=== PATIENT | female | born 1980 | race Caucasian/White ===

== ENCOUNTER 2024-11-20 10:55 | Day surgery (SDC) | payer OTHER ==
[~2024-11-20 10:55] MED LIST: HYDROmorphone 0.5 MG/0.5 ML SYRINGE IVP PRN; TRANEXAMIC 1,000 MG/100ML-NACL 1,000 MG in SALINE 1 100ML.BAG IV PRN; TRANEXAMIC 1,000 MG/100ML-NACL 1,000 MG in SALINE 1 100ML.BAG IVPB PRN
[2024-11-20] MEDS: IV FLUID CONTINUATION 1,000 ML IV ONE (11:26)
[2024-11-20] MEDS: ACETAMINOPHEN TAB 500 MG TAB PO PRN (12:08)
[2024-11-20] MEDS: DOCUSATE 100 MG CAP PO PRN (12:08)
[2024-11-20] MEDS: oxyCODONE ER 10 MG TAB.ER.12H PO PRN (12:08)
[2024-11-20] MEDS: KETOROLAC 15 MG/ML 1 ML VIAL IVP PRN (12:09)
[2024-11-20] MEDS: ONDANSETRON 4 MG/2 ML VIAL IVP PRN (12:10)
[2024-11-20] MEDS: FAMOTIDINE 20 MG/2 ML VIAL IVP PRN (12:10)
[2024-11-20] MEDS: DEXAMETHASONE SOD PHOSPHATE 10 MG/ML 1 ML VIAL IV PRN (12:10)
[2024-11-20] MEDS: LACTATED RINGERS 1,000 ML IV SCH (12:11)
[2024-11-20 12:14] LABS: Glucose,Whole Blood 94 mg/dL (70-110)
[2024-11-20] MEDS ORDERED: fentaNYL (PF) 50 MCG/ML 2 ML AMP IVP PRN (12:38)
[2024-11-20] MEDS: fentaNYL (PF) 50 MCG/ML 2 ML AMP IVP PRN (12:39)
[2024-11-20] MEDS: MIDAZOLAM 2 MG/2 ML VIAL IV PRN (12:39)
[2024-11-20] MEDS: ROPIVACAINE/EPI/CLONIDINE/KET 50 ML SYRINGE MISCELLANE PRN (12:47)
[2024-11-20] MEDS ORDERED: ROPIVACAINE 5 MG/ML 30 ML VIAL ONE (12:54)
[2024-11-20] MEDS ORDERED: LIDOCAINE 1% INJ 10MG/ML (20 ML MDV) ONE (12:54)
[2024-11-20] MEDS ORDERED: PHENYLEPHRINE 10 MG/ML VIAL ONE (12:54)
[2024-11-20] MEDS ORDERED: ePHEDrine 50 MG/ML 1 ML VIAL ONE (12:54)
[2024-11-20] MEDS ORDERED: DEXAMETHASONE SOD PHOSPHATE 4 MG/ML 1 ML VIAL ONE (12:54)
[2024-11-20] MEDS ORDERED: PROPOFOL 10 MG/ML 20 ML VIAL IV ONE (12:54)
[2024-11-20] MEDS ORDERED: NEOSTIGMINE 1 MG/ML 10 ML VIAL ONE (12:54)
[2024-11-20] MEDS ORDERED: GLYCOPYRROLATE 0.2 MG/ML 2 ML VIAL ONE (12:54)
[2024-11-20] MEDS ORDERED: HYDROmorphone (PF) 1 MG/ML ONE (12:54)
[2024-11-20] MEDS ORDERED: TRANEXAMIC 1,000 MG/100ML-NACL PREMIX BAG ONE (12:54)
[2024-11-20] MEDS ORDERED: ROCURONIUM 10 MG/ML (5 ML VIAL) IV ONE (12:54)
[2024-11-20] MEDS: LACTATED RINGERS 1,000 ML IV ONE (14:40)
--- NOTE | 2024-11-20 14:49 | P.ANPRN ---
Procedure Note - Anesthesia - Nerve Block Performed Right Moses Single Time Out Performed: Yes ([id number]) Date of Procedure: 11/20/24 Procedure Start Time: 12:40 Procedure Stop Time: 12:44 Location of Patient: PreOp Indication: Acute Post-Operative Pain, Requested by Surgeon Specifically requested for management of pain by DrIlene: Santiago Hendrickson Sedation Type: Sedate with meaningful contact maintained Preparation: Sterile Prep Position: Supine Catheter: None Needle Types: Pajunk Needle Gauge: 21 Ultrasound used to visualize needle placement: Yes Ultrasound used to observe medication spread: Yes Injectate: 0.5% Ropivacaine (see comment for volume) (30cc+decadron 4mg) Blood Aspirated: No Pain Paresthesia on Injection Noted: No Resistance on Injection: Normal Image Stored and Saved: Yes Events: Uneventful and Well Tolerated
--- NOTE | 2024-11-20 14:58 | FL ---
EXAMINATION TYPE: FL guidance operating room, XR Hip Limited RT DATE OF EXAM: 11/20/2024 FLUOROSCOPY TOTAL ANT HIP RIGHT IN OR. FL TIME 0.36 SECS FLUORO DAP 1.6466 4 images are provided. Final image shows gross anatomic alignment with well seated components of the right total hip arthrop lasty. [facility], , 11/20/2024 2:56 PM
[2024-11-20] MEDS ORDERED: NALOXONE 0.4 MG/ML 1 ML VIAL IV PRN (15:00)
[2024-11-20] MEDS ORDERED: MAGNESIUM HYDROXIDE 2,400 MG/30 ML CUP PO PRN (15:00)
[2024-11-20] MEDS ORDERED: diazePAM 5 MG TAB PO PRN ×2 (15:00)
[2024-11-20] MEDS ORDERED: TEMAZEPAM 15 MG CAP PO PRN (15:00)
[2024-11-20] MEDS ORDERED: HYDROmorphone 1 MG/ML 1 ML SYRINGE IVP PRN (15:00)
[2024-11-20] MEDS ORDERED: hydrOXYzine pamoate 25 MG CAP PO PRN (15:00)
[2024-11-20] MEDS ORDERED: ONDANSETRON 4 MG/2 ML VIAL IVP PRN (15:00)
[2024-11-20] MEDS ORDERED: HYDROmorphone 0.5 MG/0.5 ML SYRINGE IVP PRN ×2 (15:00)
--- NOTE | 2024-11-20 15:00 | P.OP ---
Date of Procedure: 11/20/24 Preoperative Diagnosis: Severe right hip osteoarthritis with large cam lesion Postoperative Diagnosis: Same Procedure(s) Performed: Right direct anterior total hip arthroplasty Implants: 1. [place] Tr[place] II Acetabular Cup, Size #48 2. [place] Insignia Size #3 Femoral Stem, Standard Offset 3. Dual Mobility OD 38 mm, ID 28 mm, -4 mm neck Anesthesia: GETA Surgeon: Santiago Hendrickson Lard Tub Washer #1: David Nguyen Estimated Blood Loss (ml): 500 IV fluids (ml): 800 Pathology: none sent Condition: stable Disposition: PACU Indications for Procedure: The patient presented to my office with severe and incapacitating right hip and groin pain. Her x-rays showed severe hip arthritis with complete loss of joint space at the superior aspect of the femoral head and a large cam lesion. She had pain with any attempts of passive range of motion of the right hip. We discussed continued nonsurgical treatment which she initially elected for. She eventually developed worsening pain and requested proceeding with surgery. Given her x-ray findings and exam we both felt confident that the majority of her pain was intra-articular hip pathology. We also discussed the role that her age plays. I think she would be best treated with a total hip replacement understanding the limitations and possibility of needing revision later in life. Both the patient and her understand and agree to proceed with a direct anterior total hip arthroplasty. I had a long discussion with the patient in the office on the potential risks and complications of an elective total hip replacement through a direct anterior approach. Risks discussed include, but are certainly not limited to, risks from anesthesia, superficial infection requiring local wound care or antibiotics, deep donnell-prosthetic joint infection and the treatment required to eradicate infection, intraoperative fracture, postoperative periprosthetic fracture, damage to local blood vessels or nerves particularly the lateral femoral cutaneous nerve, delayed wound healing requiring local wound care or possibly surgical debridement, hip dislocation, leg length discrepancy, soft tissue irritation around the total hip implant such as iliopsoas tendinitis or trochanteric bursitis, wear and osteolysis from the implants, squeaking or audible noises, groin pain, thigh pain, heterotopic ossification, stiffness, aseptic loosening of the implants, dissatisfaction with surgical outcome, need for revision surgery, DVT, PE, swelling of the operative extremity, acute coronary event, stroke, failure to thrive, and possibly loss of life or limb. The patient understands that while these are the most common complications after an elective hip replacement there are certainly other less common complications possible. They were given ample time to ask questions regarding the potential complications of a hip replacement. Following our discussion the patient provided their verbal and written consent to go forward with an elective total hip replacement. Operative Findings: Severe arthritis with complete loss of joint space along the superior femoral head and neck. Large cam lesion over the lateral head and neck. Description of Procedure: The patient was identified in the preoperative holding area and the correct hip was marked with my initials. I reviewed the procedure and consent with the patient. All of their questions were answered. The patient was then brought back into the operating room by anesthesia. While on the [facility] anesthesia was administered by the anesthesia team. Preoperative antibiotics and tranexamic acid were also given. After the patient was under anesthesia I examined their ankles to determine their preoperative leg length discrepancy. The skin over the anterior aspect of the hip was shaved to remove hair over the site of planned incision. Both feet and ankles were padded with webril and boots for the [place] were applied. The patient was then carefully transferred onto the [place] table. A perineal post was immediately placed. The arms were placed on arm holders and were well-padded. Both boots were secured to the spars on the [place] table. The patient was positioned so that the pelvis was centered over the post. Nonsterile drapes were applied. A timeout was performed identifying the correct patient, operative extremity, and procedure. At this point fluoroscopy was brought in to take preoperative images of the pelvis and operative hip. Using the standing AP pelvis from the office as a template, a comparable image was obtained with fluoroscopy. A metallic bar was used to create a bi-ischial line for use as a reference to leg length adjustments during the procedure. Global offset was also measured on both the operative and nonoperative leg. Fluoroscopy was then brought out and a pre-scrub using a chlorhexidine scrub brush was performed. The operative limb was then prepped and draped in the standard sterile fashion. An anterior longitudinal incision was made lateral and distal to the ASIS. The skin and subcutaneous tissues were incised sharply. The underlying tensor fascia was identified and incised in its midportion. The fascia was dissected free from the underlying muscle and the muscle belly was retracted. A blunt tipped cobra retractor was placed over the superior neck under the muscle fibers of the gluteus minimus. The deep enveloping fascia of the tensor was incised. The anterior leash of vessels were then identified and cauterized. The fascia between the rectus and the capsule was then incised and the pre-capsular fat was excised. A second Cobra was placed inferior to the neck. The interval between the rectus and iliocapsularis and the hip capsule was developed and a retractor was placed carefully over the anterior rim of the acetabulum. A T-shaped anterior capsulotomy was performed. The superior capsular leaflet was left in place in the inferior capsular flap was excised. The Cobra retractors were placed intracapsularly. We then made a femoral neck osteotomy according to preoperative and intraoperative templating and confirmed the level of the osteotomy using fluoroscopic imaging. The femoral head was removed, passed off to the back table, and sized. The superior capsular flap was excised. Retractors were placed circumferentially exposing the acetabulum. We then circumferentially debrided the acetabulum free of labrum and osteophytes. The pulvinar was removed to fully visualize the cotyloid fossa. We then sequentially reamed to achieve peripheral fit and excellent bleeding subchondral bone. The socket was thoroughly irrigated. The acetabular component was impacted into the appropriate position using fluoroscopy to guide version, inclination, and depth of insertion taking care to have a comparable image of the AP pelvis to the standing image taken in the office. An excellent press-fit was achieved and final position was confirmed using fluoroscopy. The press fit was augmented with a bony cancellus dome screw. The liner was then impacted into the socket. Attention was then turned to the femur. The remnant dorsal lateral capsule was excised. The short external rotators were visible and protected. A bone hook was used to confirm appropriate translation of the trochanter away from the acetabulum. The leg was then extended and adducted and the bone hook was used to elevate the femur for broaching. A box osteotome and blunt tipped canal sound was then utilized to gain access to the femoral canal. We then sequentially broached the femur in appropriate anteversion until excellent torsional stability was achieved. The neck cut was brought flush to the trial broach with a calcar planar. A trial neck and head were then placed onto the broach and the hip was atraumatically reduced under direct visualization. External rotation to 90 was performed to assess stability. Fluoroscopy was brought in. An AP and lateral fluoroscopic image of the proximal femur was obtained to assess position and fill of the trial broach. An AP of the pelvis was then obtained and matched to the preoperative image taken. A bi-ischial bar was then placed and measurements were taken to assess changes in length and offset. The hip was then carefully dislocated, the proximal femur was exposed, and the trial implants were removed. The wound and proximal femur was thoroughly irrigated using sterile saline and pulsatile lavage. The final femoral implant was dispensed and gently tapped into place generating an excellent press-fit. The trunnion was cleansed and the final head was tapped into place to engage the Sherman taper. The acetabulum was irrigated and visualized to be free of debris. The hip was carefully reduced. Stability was checked clinically with external rotation to 90 and there was no evidence of instability. Final fluoroscopic images were taken. The wound was then thoroughly irrigated and soaked with a dilute Betadine rinse for 3 minutes. 3 L of sterile saline was irrigated through the wound using pulsatile lavage. Local anesthetic cocktail was injected into the soft tissues around the surgical field. The wound was then closed in layers. A sterile dressing was placed over the surgical incision. The drapes were taken down and the patient was carefully transferred off of the [place] table. Following removal of the boots the leg lengths felt acceptable. The patient was then taken to recovery room having tolerated the procedure well. David Nguyen PA-C was required as a skilled litigation legal assistant due to the complexity of surgery for patient positioning, draping, exposure, retraction, closure of wound and application of dressing. PLAN: The patient can weight-bear as tolerated on the operative extremity. 2 doses of postoperative antibiotics. DVT prophylaxis with aspirin 81 mg twice a day based on preoperative risk stratification. Physical therapy for gait training.
[2024-11-20] MEDS: SENNOSIDES-DOCUSATE SODIUM 1 EACH TAB PO SCH (20:09)
[2024-11-20] MEDS: SODIUM CHLORIDE 0.9% 1,000 ML IV SCH (20:09)
[2024-11-20] MEDS: ASPIRIN 81 MG PO SCH (20:09)
[2024-11-20 20:22] LABS: Glucose,Whole Blood 192 mg/dL (70-110)
[2024-11-21] MEDS: HYDROcodone/APAP 5-325MG 1 EACH TAB PO PRN (00:05)
[2024-11-21 02:01] VITALS: RESP 17
--- NOTE | 2024-11-21 05:15 | P.CONS ---
History of Present Illness - Reason for Consult Consult date: 11/20/24 - History of Present Illness 44-year-old female no significant past medical history Patient underwent right hip replacement due to severe degenerative joint disease tolerated procedure well no severe immediate postoperative complications tolerated p.o. intake took few steps with assistance passed urine. Denies any nausea vomiting chest pain trouble breathing. review of systems Pertinent positives as noted in HPI. All other systems were reviewed and are negative on exam Constitutional: No acute distress, conversant, pleasant Eyes: Anicteric sclerae, moist conjunctiva, Pupils equal round reactive to light ENMT: NC/AT Oropharynx clear, no erythema, or exudates Neck: Supple, no masses, or JVD No carotid bruits No thyromegaly Lungs: Clear to auscultation Clear to percussion Normal respiratory effort, no accessory muscle use Cardiovascular: Heart regular in rate and rhythm, No murmurs, gallops, or rubs No peripheral edema Abdominal: Soft Nontender, no guarding, rebound or rigidity Abdomen moving with respiration Normoactive bowel sounds Extremities: No digital cyanosis No clubbing Pedal pulses intact and symmetrical Radial pulses intact and symmetrical No calf tenderness Psychiatric: Alert and oriented to person, place and time Appropriate affect fair judgement Neuro Muscles Strength 5/5 in all 4 extremities except for limited exam over the right lower extremity secondary to postop status Sensation to light touch grossly present throughout Cranial nerves II-XII grossly intact Past Medical History Additional Past Medical History / Comment(s): orly saweyr-uses inhaler as needed. rt hip pain. -leg feels like it will give out. History of Any Multi-Drug Resistant Organisms: None Reported Past Surgical History: Hernia Repair, Hysterectomy Additional Past Surgical History / Comment(s): polyp removal- Past Anesthesia/Blood Transfusion Reactions: No Reported Reaction Past Psychological History: No Psychological Hx Reported Smoking Status: Never smoker Past Alcohol Use History: Occasional Past Drug Use History: None Reported - Past Family History Mother Family Medical History: Cancer, Hypertension Additional Family Medical History / Comment(s): ovarian cancer Father Family Medical History: Cancer, Hyperlipidemia, Myocardial Infarction ([place]) Additional Family Medical History / Comment(s): neck and jaw cancer Medications and Allergies Home Medications Medication Instructions Recorded Confirmed Type Albuterol Sulfate [Ventolin HFA] 2 puff INHALATION Q4HR PRN 11/14/24 11/20/24 History Meloxicam 7.5 mg PO DIRECTED PRN 11/14/24 11/20/24 History Tirzepatide [Zepbound] 7.5 mg SQ MO 11/14/24 11/20/24 History Unk Multi Vitamin 1 tab PO DAILY 11/14/24 11/20/24 History Allergies Allergy/AdvReac Type Severity Reaction Status Date / Time No Known Allergies Allergy Verified 11/20/24 11:30 Physical Exam Vitals: Vital Signs Temp Pulse Pulse Resp BP BP Pulse Ox 11/21/24 02:00 97.6 F 99 17 93/67 100 11/21/24 01:00 14 11/21/24 00:03 90/61 11/20/24 19:40 97.6 F 102 H 17 92/63 100 11/20/24 19:04 94/52 11/20/24 17:21 97.5 F L 17 94/61 97 11/20/24 16:24 74 13 98/61 99 11/20/24 16:09 72 13 97/57 99 11/20/24 15:54 71 13 103/62 99 11/20/24 15:38 77 12 103/62 99 11/20/24 15:23 81 12 105/60 100 11/20/24 15:08 97 F L 91 16 104/58 98 11/20/24 12:44 87 16 113/73 100 11/20/24 12:00 98.0 F 87 16 132/88 100 Intake and Output 11/20/24 11/20/24 11/21/24 14:59 22:59 06:59 Intake Total 1450 50 Output Total 500 0 Balance 950 50 Intake: IV 1450 50 Output: Urine 0 Estimated Blood Loss 500 Other: Voiding Method Bedside Commode # Voids 1 Weight 82.8 kg 82.8 kg Results Labs: Abnormal Lab Results - Last 24 Hours (Table) 11/20/24 Range/Units 20:21 POC Glucose (mg/dL) 192 H (70-110) mg/dL Assessment and Plan Assessment: Right hip replacement postoperative day 0 Tolerated procedure well DVT prophylaxis and pain control per primary surgical team Check CBC BMP in the morning Stable overall from medical standpoint Thank you for this consultation
[2024-11-21] MEDS: HYDROcodone/APAP 10-325MG 1 EACH TAB PO PRN (05:49)
--- NOTE | 2024-11-21 07:39 | P.DS ---
Providers Date of admission: 11/20/2024 Attending physician: Santiago Hendrickson Consults: 11/20/24 15:00 Consult Physician Routine Consulting Provider: Emir Catherine Consult Reason/Comments: post op medical management Do you want consulting provider notified?: Yes Primary care physician: Mick Bautista [facility] Course: Pleasant 44-year-old female who was admitted yesterday and underwent uncom plicated total hip replacement. She was admitted under my care following surgery. Internal medicine has been consulted. Physical therapy has been consulted. I saw the patient on postoperative day #1 and she was doing well. Her dressing was intact with only a small area of spotting at the superior aspect. Her thigh is soft and compressible. Femoral nerve function is intact. She is able to actively plantarflex and dorsiflex her ankle and her toes. She was tentatively cleared for discharge home pending evaluation by physical therapy later this morning. Patient Condition at Discharge: Good Plan - Discharge Summary Discharge Rx Participant: No New Discharge Prescriptions: No Action Unk Multi Vitamin 1 tab PO DAILY Tirzepatide [Zepbound] 7.5 mg SQ MO Meloxicam 7.5 mg PO DIRECTED PRN PRN Reason: Pain Albuterol Sulfate [Ventolin HFA] 2 puff INHALATION Q4HR PRN PRN Reason: Shortness Of Breath Discharge Medication List Albuterol Sulfate [Ventolin HFA] 2 puff INHALATION Q4HR PRN 11/14/24 [History] Meloxicam 7.5 mg PO DIRECTED PRN 11/14/24 [History] Tirzepatide [Zepbound] 7.5 mg SQ MO 11/14/24 [History] Unk Multi Vitamin 1 tab PO DAILY 11/14/24 [History] Follow up Appointment(s)/Referral(s): Santiago Hendrickson MD [Medical Doctor] - 2 Weeks Activity/Diet/Wound Care/Special Instructions: 1. Weight-bear as tolerated on your operative extremity unless instructed otherwise. Use a walker or other assistive device to ambulate. 2. Leave surgical dressing in place. If your dressing becomes saturated with blood, there is drainage, or the dressing becomes loose please contact the off ice. 3. It is okay to shower with your surgical dressing, but do not submerge in water (no hot tubs, bath's, swimming etc.) 4. Make sure to take her blood clot prevention medication as prescribed ( aspirin, Eliquis, Xarelto, and Plavix are commonly prescribed medications for blood clot prevention) 5. While taking [place] or Percocet for pain make sure you're taking a stool softener (Colace) and drink lots of water. 6. Keep all follow-up appointments as scheduled. You will usually be seen in 1-2 weeks following surgery. 7. Please contact the office with any questions or concerns [phone] Discharge Disposition: HOME WITH HOME HEALTH SERVICES
[2024-11-21 07:58] LABS: Basophils # (A) 0.03 X 10*3/uL (0.00-0.10); Basophils % (A) 0.2 %; Eosinophils # (A) 0 X 10*3/uL (0.04-0.35); Eosinophils % (A) 0 %; HCT 28.1 % (37.2-46.3); HGB 9.3 g/dL (12.0-15.0); Lymphocytes # (A) 1.28 X 10*3/uL (0.90-5.00); Lymphocytes % (A) 9.2 %; MCH 30.7 pg (27.0-32.0); MCHC 33.1 g/dL (32.0-37.0); MCV 92.7 FL (80.0-97.0); Mean Platelet Volume 10.9 FL (9.5-12.2); Monocytes # (A) 0.88 X 10*3/uL (0.20-1.00); Monocytes % (A) 6.3 %; NRBC Per 100 WBC 0 X 10*3/uL (0.00-0.01); Neutrophils % (A) 83.7 %; Platelet Count 178 X 10*3/uL (140-440); RBC 3.03 X 10*6/uL (4.10-5.20); RDW 13.2 % (11.5-14.5); WBC 13.97 X 10*3/uL (4.50-10.00)
[2024-11-21 09:00] LABS: Blood Urea Nitrogen 8.7 mg/dL (9.0-27.0); Calcium 7.8 mg/dL (8.7-10.3); Carbon Dioxide 21.7 mmol/L (21.6-31.8); Chloride 108 mmol/L (96-109); Glucose 112 mg/dL (70-110); Potassium 5.2 mmol/L (3.5-5.5); Sodium 138 mmol/L (135-145)
--- NOTE | 2024-11-21 09:34 | P.PN ---
Subjective Progress Note Date: 11/21/24 Subjective: Patient seen and examined at bedside. No acute events overnight. Pertinent positives and negatives as discussed above, a complete review of systems was performed and all other systems are negative. Vitals Signs Reviewed. General: Nontoxic, no distress, appears at stated age Derm: Warm, dry, dressing clean, dry, intact Head: Atraumatic, normocephalic, symmetric Eyes: EOMI, no lid lag, anicteric sclera Mouth: No lip lesion, mucus membranes moist Cardiovascular: S1S2 reg, no murmur Lungs: CTA bilateral, no rhonchi, no rales, no accessory muscle use Abdominal: Soft, nontender to palpation, no guarding, no appreciable organomegaly Ext: No gross muscle atrophy, no edema, no contractures Neuro: CN II-XI grossly intact, no focal neuro deficits Psych: Alert, oriented, appropriate affect Data Reviewed Today: Pertinent Labs: WBC 13.97, hemoglobin 9.3, potassium 5.2, creatinine 0.6, blood glucose range between 94-1 92 Imaging: No new imaging Assessment and Plan: Active: Status post total right hip arthroplasty Leukocytosis, anticipated, surgery Normocytic anemia, anticipated from surgery - Pain control, DVT prophylaxis per orthopedic surgery - OT PT - On bowel regimen - Okay to continue normal saline at 100 cc an hour Patient is medically optimized for discharge home Thank you for allowing us to participate in the care of this pleasant patient. Do not hesitate to contact us with questions. Someone can be reached from the [facility] hospitalist group all hours of the day at [phone] or via perfect serve. Objective - Vital Signs Vital signs: Vital Signs Temp 97.6 F 11/21/24 02:00 Pulse 99 11/21/24 02:00 Resp 17 11/21/24 02:00 BP 93/67 11/21/24 02:00 Pulse Ox 100 11/21/24 02:00 FiO2 Intake & Output 11/20/24 11/21/24 11/21/24 18:59 06:59 18:59 Intake Total 1500 Output Total 500 Balance 1000 Weight 82.8 kg Intake: IV 1500 Output: Urine 0 Estimated Blood Loss 500 Other: Voiding Method Bedside Commode # Voids 1 - Labs CBC & Chem 7: 11/21/24 04:01 11/21/24 04:01 Labs: Abnormal Lab Results - Last 24 Hours (Table) 11/20/24 11/21/24 11/21/24 Range/Units 20:21 04:01 04:01 WBC 13.97 H (4.50-10.00) X 10*3/uL RBC 3.03 L (4.10-5.20) X 10*6/uL Hgb 9.3 L (12.0-15.0) g/dL Hct 28.1 L (37.2-46.3) % Immature Gran # 0.08 H (0.00-0.04) X 10*3/uL Neutrophils # 11.70 H (1.80-7.70) X 10*3/uL Eosinophils # 0 L (0.04-0.35) X 10*3/uL BUN 8.7 L (9.0-27.0) mg/dL Glucose 112 H (70-110) mg/dL POC Glucose (mg/dL) 192 H (70-110) mg/dL Calcium 7.8 L (8.7-10.3) mg/dL
[2024-11-21 09:42] VITALS: BP 90/54; PULSE 82; TEMP 97.9
[2024-11-21] MEDS ORDERED: TEMAZEPAM 15 MG CAP PO PRN (22:00)
== END 2024-11-21 13:37 | disposition home health service (06) ==
LOC: OR 10:55 → 4SSUR 15:01 → OR 11-21 13:37
PROVIDERS: ATTEND Orthopaedic Surgery
DX: M16.11 Unilateral primary osteoarthritis, right hip (principal); J45.909 Unspecified asthma, uncomplicated; D72.829 Elevated white blood cell count, unspecified; D64.9 Anemia, unspecified; Z90.710 Acquired absence of both cervix and uterus; Z96.641 Presence of right artificial hip joint; Z86.16 Personal history of COVID-19; Z82.49 Family history of ischemic heart disease and other diseases of the circulatory system; Z83.49 Family history of other endocrine, nutritional and metabolic diseases; Z79.51 Long term (current) use of inhaled steroids; Z79.899 Other long term (current) drug therapy
CPT/HCPCS: 97161; 97166; 64473; 86900; 86901; 80048; 85025; 86850; 73501; 27130; C1776; J2250; J1100; J0690 ×2; J2405; J3010; J1885; J1308